=== PATIENT | male | born 1935 | race Caucasian/White ===

== ENCOUNTER 2017-10-20 10:35 | Inpatient (IN) | payer MEDICARE ==
[~2017-10-20] VITALS: Ht 157.5 cm; Wt 54.9 kg
[2017-10-20] MEDS ORDERED: SODIUM CHLORIDE 0.9% 1000ML 1,000 ML IV SCH (11:00)
[2017-10-20 11:11] LABS: BILIRUBIN,URINE NEGATIVE (NEGATIVE); CLARITY,URINE SL CLOUDY (CLEAR); COLOR,URINE AMBER (YELLOW); KETONES,URINE NEGATIVE (NEGATIVE); LEUKOCYTE ESTERASE ,URINE 1+ (NEGATIVE); NITRITE,URINE NEGATIVE (NEGATIVE); PROTEIN,URINE DIPSTICK TRACE (NEGATIVE); URINE UROBILINOGEN 0.2 mg/dL (0.2 - 1)
[2017-10-20] MEDS ORDERED: SODIUM CHLORIDE 0.9% 1000ML 1,000 ML ONE (11:11)
[2017-10-20 11:22] LABS: WBC,URINE (MAN) 21-50 /HPF (0-5)
[2017-10-20 11:23] LABS: BACTERIA,URINE FEW /HPF; EPITHELIAL CELLS,URINE RARE /LPF
[2017-10-20 11:25] LABS: AMORPHOUS SEDIMENT,URINE RARE (FEW)
[2017-10-20 11:29] LABS: BASOPHILS % 0.2 % (0.0-1.0); EOSINOPHILS % 0.1 % (0.0-6.0); HEMATOCRIT 38.2 % (38.2-49.6); HEMOGLOBIN 12.5 g/dL (14.0-18.0); LYMPHOCYTES # (AUTO) 0.7 (1.0-3.2); LYMPHOCYTES % 4.1 % (18.0-39.1); MEAN CORPUSCULAR HEMOGLOBIN 31.3 pg (28-32); MEAN CORPUSCULAR HGB CONC 32.7 g/dL (31-35); MEAN CORPUSCULAR VOLUME 95.7 fL (81-99); MONOCYTES # (AUTO) 1.4 (0.2-0.8); MONOCYTES % 8.1 % (4.4-11.3); NEUTROPHILS # (AUTO) 14.6 (2.1-6.9); NEUTROPHILS % 86.8 % (38.7-80.0); PLATELET COUNT 165 x10e3/uL (140-360); RED BLOOD COUNT 3.99 x10e6/uL (4.3-5.7)
[2017-10-20 11:49] LABS: ALBUMIN 3.7 g/dL (3.5-5.0); ALBUMIN/GLOBULIN RATIO 1.1 (0.8-2.0); CALCIUM 9.5 mg/dL (8.4-10.2); CREATININE, SERUM 1.34 mg/dL (0.72-1.25)
[2017-10-20] MEDS ORDERED: MEROPENEM 1GRAM 1 GM in SODIUM CHLORIDE 0.9% 100 ML 100 ML IV SCH (12:15)
[2017-10-20] MEDS: MEROPENEM 1 GM VIAL IV SCH (13:08)
[2017-10-20] MEDS: SODIUM CHLORIDE 0.9% 1000ML 1,000 ML IV SCH (13:08)
[2017-10-20 13:30] VITALS: BP 124/54
[2017-10-20 14:15] VITALS: BP 124/54
[2017-10-20 16:27] VITALS: BP 125/60
[2017-10-20 19:30] VITALS: BP 114/62
[2017-10-20 20:00] VITALS: BP 114/62
[2017-10-21] VITALS (7 sets, daily range): BP systolic 98–138; BP diastolic 56–63
[2017-10-21] MEDS: MEROPENEM 1 GM VIAL IV SCH ×2 (01:00→13:40)
[2017-10-21] MEDS ORDERED: HYDRALAZINE HCL 20 MG/ML VIAL IV PRN (07:45)
[2017-10-21] MEDS ORDERED: ACETAMINOPHEN 325 MG TAB PO PRN (07:45)
[2017-10-21] MEDS ORDERED: ONDANSETRON HCL INJ 2 MG/ML VIAL IV PRN (07:45)
[2017-10-21] MEDS ORDERED: ZEBETA10 MG PO (09:05)
[2017-10-21] MEDS ORDERED: [UNRECOGNIZED DRUG - OTHER] PO (09:05)
[2017-10-21] MEDS ORDERED: SIMVASTATIN20 MG PO (09:05)
[2017-10-21] MEDS: SODIUM CHLORIDE 0.9% 1000ML 1,000 ML IV SCH (13:40)
[2017-10-21] MEDS ORDERED: SIMVASTATIN 20 MG TAB PO SCH (21:00)
[2017-10-22] VITALS: BP 123/65
[2017-10-22] MEDS: MEROPENEM 1 GM VIAL IV SCH (01:00)
[2017-10-22 03:13] LABS: BASOPHILS % 0.2 % (0.0-1.0); EOSINOPHILS # (AUTO) 0.1 (0.0-0.4); EOSINOPHILS % 0.6 % (0.0-6.0); HEMATOCRIT 32.5 % (38.2-49.6); HEMOGLOBIN 10.6 g/dL (14.0-18.0); LYMPHOCYTES # (AUTO) 1.2 (1.0-3.2); LYMPHOCYTES % 8.8 % (18.0-39.1); MEAN CORPUSCULAR HEMOGLOBIN 30.8 pg (28-32); MEAN CORPUSCULAR HGB CONC 32.6 g/dL (31-35); MEAN CORPUSCULAR VOLUME 94.5 fL (81-99); MONOCYTES # (AUTO) 0.9 (0.2-0.8); MONOCYTES % 6.6 % (4.4-11.3); NEUTROPHILS # (AUTO) 10.9 (2.1-6.9); NEUTROPHILS % 83.3 % (38.7-80.0); PLATELET COUNT 152 x10e3/uL (140-360); RED BLOOD COUNT 3.44 x10e6/uL (4.3-5.7); RED CELL DISTRIBUTION WIDTH 11.9 % (11.7-14.4)
[2017-10-22 03:30] LABS: % IRON SATURATION 9 % (15-50); ANION GAP 10.7 mmol/L (8-16); BLOOD UREA NITROGEN 11 mg/dL (7-26); BUN/CREATININE RATIO 15 (6-25); CALCIUM 8.3 mg/dL (8.4-10.2); CARBON DIOXIDE 25 mmol/L (22-29); CHLORIDE 105 mmol/L (98-107); CHOL/HDL RATIO 3.1 (3.9-4.7); CHOLESTEROL 99 MD/DL (0-199); CREATININE, SERUM 0.75 mg/dL (0.72-1.25); EST GLOMERULAR FILTRATION RATE > 60 ML/MIN (60-); GLUCOSE 82 mg/dL (74-118); HDL CHOLESTEROL 32 MG/DL (40-60); IRON 18 ug/dL (65-175); LDL CHOLESTEROL 53 MG/DL (60-130); MAGNESIUM 1.5 MG/DL (1.3-2.1); POTASSIUM 3.7 mmol/L (3.5-5.1); SODIUM 137 mmol/L (136-145); TOTAL IRON BINDING CAPACITY 202 ug/dL (261-478); TRANSFERRIN 144 mg/dL (174-364); TRIGLYCERIDES 70 MG/DL (0-149)
[2017-10-22 03:52] LABS: FERRITIN 201.99 ng/mL (21.81-274.66); FREE T4 (FREE THYROXINE) 0.98 ng/dL (0.9-1.8); THYROID STIMULATING HORMONE 0.558 uIU/mL (0.350-4.940)
[2017-10-22 04:00] VITALS: BP 122/59
[2017-10-22 04:26] VITALS: BP 123/65
[2017-10-22 05:07] LABS: FOLATE 5.9 ng/mL (7.0-15.4)
[2017-10-22 08:00] VITALS: BP 137/70
[2017-10-22] MEDS ORDERED: [UNRECOGNIZED DRUG - OTHER] PO SCH (09:00)
[2017-10-22] MEDS ORDERED: BENAZEPRIL HCL 10 MG TAB PO SCH (09:00)
[2017-10-22] MEDS ORDERED: AMLODIPINE BESYLATE 10 MG TAB PO SCH (09:00)
[2017-10-22] MEDS ORDERED: BISOPROLOL FUMARATE 10 MG TAB PO SCH (09:00)
[2017-10-22] MEDS ORDERED: FOLIC ACID1 MG PO (10:02)
[2017-10-22] MEDS ORDERED: OS-CAL 500+D T1 EACH PO (10:02)
[2017-10-22] MEDS ORDERED: BACTRIM DS TAB1 EACH PO (10:02)
[2017-10-22] MEDS ORDERED: OYST-CAL-D 500MG TABLET PO SCH (17:00)
--- NOTE | 2017-10-22 18:05 | Discharge Summary ---
ADMISSION DIAGNOSES 1. Urinary tract infection, failed outpatient. 2. Acute kidney injury versus chronic kidney disease. 3. Hypertension. 4. Hyperlipidemia. 5. Anemia. DISCHARGE DIAGNOSES 1. Urinary tract infection, failed outpatient. 2. Acute kidney injury versus chronic kidney disease. 3. Hypertension. 4. Hyperlipidemia. 5. Anemia. 6. Hypocalcemia. 7. Folic acid deficiency. HISTORY: Patient has a history of hypertension and hyperlipidemia. No surgical history. HOSPITAL COURSE: An 82-year-old male status post cysto-retrograde with prostate biopsy on October 10, 2017. He says the dysuria began after the procedure. He was given antibiotics that started with an "L" and pain medicine. The pain went away for a few days but returned with fever. The patient's dysuria resolved once IV antibiotics were started in the hospital, which was Merrem. Urine culture sent, which showed ESBL. Patient's creatinine went from 1.34 on admission to 0.75 on discharge. GFR went from 51 to over 60. Patient was started on hydralazine IV p.r.n. as well as his home medications for high blood pressure and high cholesterol. Per Urology, patient sent home with Bactrim for 14 days as well as folic acid and calcium carbonate. He will follow up with primary care in 1 to 2 weeks as well as Dr. Wilson as stated. Patient understands discharge instructions and is ready to go home. Dictated by: Matilda Tapia NP MELONIE DOE MD Job#: [id number] EV
[2017-10-23] MEDS ORDERED: FOLIC ACID 1 MG TAB PO SCH (09:00)
== END 2017-10-22 10:31 | disposition home or self-care (01) | DRG 690 ==
LOC: ER 10:35 → ERHOLD 12:24 → MED/SURG2 13:15
PROVIDERS: ADMIT Internal Medicine; ATTEND Internal Medicine
DX: N39.0 Urinary tract infection, site not specified (principal); N17.9 Acute kidney failure, unspecified; E87.1 Hypo-osmolality and hyponatremia; E78.5 Hyperlipidemia, unspecified; E83.51 Hypocalcemia; E53.8 Deficiency of other specified B group vitamins; D64.9 Anemia, unspecified; B96.20 Unspecified Escherichia coli [E. coli] as the cause of diseases classified elsewhere; Z16.12 Extended spectrum beta lactamase (ESBL) resistance; I12.9 Hypertensive chronic kidney disease with stage 1 through stage 4 chronic kidney disease, or unspecified chronic kidney disease; N18.9 Chronic kidney disease, unspecified
CPT/HCPCS: 36415; 80048; 80053; 80061; 81001; 82607; 82728; 82746; 83036; 83540; 83735; 84439; 84443; 84466; 85025; 87086; 87186; 96367; 99284; J2185; J7030

== ENCOUNTER 2017-11-07 10:54 | Emergency (ER) | payer MEDICARE ==
[~2017-11-07] VITALS: Ht 157.5 cm; Wt 54.9 kg
[~2017-11-07 10:54] MED LIST: BACTRIM DS TAB1 EACH PO; FOLIC ACID1 MG PO; OS-CAL 500+D T1 EACH PO; SIMVASTATIN20 MG PO; ZEBETA10 MG PO; [UNRECOGNIZED DRUG - OTHER] PO
[2017-11-07] MEDS ORDERED: SODIUM CHLORIDE 0.9% 1000ML 1,000 ML IV SCH (11:33)
[2017-11-07 11:57] LABS: BASOPHILS % 0.6 % (0.0-1.0); EOSINOPHILS % 0.6 % (0.0-6.0); HEMATOCRIT 35.8 % (38.2-49.6); LYMPHOCYTES # (AUTO) 0.6 (1.0-3.2); LYMPHOCYTES % 12.9 % (18.0-39.1); MEAN CORPUSCULAR HEMOGLOBIN 31.7 pg (28-32); MEAN CORPUSCULAR HGB CONC 33.5 g/dL (31-35); MEAN CORPUSCULAR VOLUME 94.5 fL (81-99); MONOCYTES # (AUTO) 0.7 (0.2-0.8); MONOCYTES % 13.3 % (4.4-11.3); NEUTROPHILS # (AUTO) 3.6 (2.1-6.9); NEUTROPHILS % 71.8 % (38.7-80.0); PLATELET COUNT 163 x10e3/uL (140-360); RED BLOOD COUNT 3.79 x10e6/uL (4.3-5.7); RED CELL DISTRIBUTION WIDTH 12.3 % (11.7-14.4)
[2017-11-07 12:12] LABS: CREATINE KINASE 94 IU/L (30-200)
[2017-11-07 12:31] LABS: ALBUMIN 3.3 g/dL (3.5-5.0); ALBUMIN/GLOBULIN RATIO 0.9 (0.8-2.0); ANION GAP 13.9 mmol/L (8-16); CALCIUM 8.8 mg/dL (8.4-10.2); CREATININE, SERUM 1.77 mg/dL (0.72-1.25); POTASSIUM 3.9 mmol/L (3.5-5.1)
[2017-11-07 12:38] LABS: BLAST CELLS % MANUAL 1; LYMPHOCYTES % (MANUAL) 11 % (19-48); MONOCYTES % (MANUAL) 10 % (3.4-9.0); NEUTROPHILS % (MANUAL) 71 % (40-74); PLATELET ESTIMATE ADEQUATE; PLATELET MORPHOLOGY COMMENT NORMAL; RBC MORPHOLOGY COMMENT NORMAL
[2017-11-07] MEDS ORDERED: SODIUM CHLORIDE 0.9% 1000ML 1,000 ML IV STA (13:07)
[2017-11-07 14:31] LABS: BILIRUBIN,URINE NEGATIVE (NEGATIVE); CLARITY,URINE CLEAR (CLEAR); COLOR,URINE YELLOW (YELLOW); KETONES,URINE NEGATIVE (NEGATIVE); LEUKOCYTE ESTERASE ,URINE NEGATIVE (NEGATIVE); NITRITE,URINE NEGATIVE (NEGATIVE); PROTEIN,URINE DIPSTICK NEGATIVE (NEGATIVE); URINE UROBILINOGEN 0.2 mg/dL (0.2 - 1)
[2017-11-07 14:44] LABS: BACTERIA,URINE RARE /HPF; EPITHELIAL CELLS,URINE FEW /LPF; RBC,URINE 0-5 /HPF (0-5); WBC,URINE (MAN) 0-5 /HPF (0-5)
[2017-11-07 15:50] VITALS: BP 136/74
[2017-11-11] MEDS ORDERED: SODIUM CHLORIDE1 GM PO (14:19)
== END 2017-11-07 15:51 | disposition home or self-care (01) ==
LOC: ER 10:54
DX: E87.1 Hypo-osmolality and hyponatremia (principal); K52.9 Noninfective gastroenteritis and colitis, unspecified; I10 Essential (primary) hypertension; E78.00 Pure hypercholesterolemia, unspecified
CPT/HCPCS: 36415; 80053; 81001; 82270; 82550; 82553; 84484; 85025; 86850; 86900; 93005; 99284; J7030

== ENCOUNTER 2017-11-17 10:35 | Inpatient (IN) | payer MEDICARE, OTHER ==
--- NOTE | 2017-11-11 16:04 | Diagnostic Imaging Report ---
PROCEDURE: Frontal and lateral views of the chest. COMPARISON: None. INDICATIONS: PRE-OP FINDINGS: Lines/tubes: None. Lungs: The lungs are mildly hyperinflated, with increased retrosternal air. Prominence of the interstitial markings with reticular nodular opacities in peripheral aspect bilateral mid and lower lungs on the frontal view. 4 mm nodular density in the left upper lobe. There is no evidence of consolidation or pulmonary edema. Pleura: There is no pleural effusion or pneumothorax. Heart and mediastinum: Cardiac silhouette is unremarkable. Pulmonary vasculature is normal. Bones: No acute bony abnormality. Degenerative changes in the thoracic spine. IMPRESSION: 1. mild hyperinflated lungs with increased retrosternal air, suggesting COPD. 2. Prominence of interstitial markings and reticular nodular opacities in the peripheral aspect of bilateral mid and lower lungs. These may reflect fibrotic changes. CT chest is recommended for further evaluation. No consolidation or pulmonary edema. 3. 4 mm nonspecific pulmonary nodule in the left upper lobe. Bassem Wright M.D. Dictated by: Bassem Wright M.D. on 11/11/2017 at 16:08 Electronically approved by: Bassem Wright M.D. on 11/11/2017 at 16:08
[~2017-11-17] VITALS: Ht 157.5 cm; Wt 54.9 kg
[~2017-11-17 10:35] MED LIST changes: +SODIUM CHLORIDE1 GM PO
[2017-11-17] MEDS ORDERED: CEFTRIAXONE SOD 1 GM VIAL ONE (10:59)
[2017-11-17] MEDS: MEROPENEM 1 GM VIAL IV NR (11:54)
[2017-11-17 11:59] LABS: ANION GAP 14.2 mmol/L (8-16); BLOOD UREA NITROGEN 23 mg/dL (7-26); BUN/CREATININE RATIO 23 (6-25); CALCIUM 9.1 mg/dL (8.4-10.2); CARBON DIOXIDE 27 mmol/L (22-29); CHLORIDE 106 mmol/L (98-107); EST GLOMERULAR FILTRATION RATE > 60 ML/MIN (60-); GLUCOSE 83 mg/dL (74-118); POTASSIUM 4.2 mmol/L (3.5-5.1); SODIUM 143 mmol/L (136-145)
[2017-11-17] MEDS ORDERED: BELLADONNA/OPIUM 30 MG SUPP RC ONE (12:34)
[2017-11-17] MEDS ORDERED: IOPAMIDOL 610MG/1ML 300 MG/ML VIAL IV ONE (12:34)
[2017-11-17] MEDS ORDERED: FENTANYL CITRATE/PF 100MCG/2 ML INJ ONE ×2 (15:06→17:54)
[2017-11-17] MEDS ORDERED: MORPHINE SULFATE 2 MG/ML SYR ONE ×3 (15:23→17:04)
[2017-11-17] MEDS ORDERED: MEPERIDINE HCL INJ 50 MG/ML INJ ONE (15:32)
[2017-11-17] MEDS ORDERED: MORPHINE SULFATE INJ 10 MG/ML ONE (17:23)
[2017-11-17] MEDS ORDERED: LIDOCAINE HCL 2% LOCAL INJ 5 ML SDV VIAL INJ ONE (17:25)
[2017-11-17] MEDS ORDERED: PROPOFOL IV EMULSION 10 MG/ML 20 ML VIAL ONE (17:25)
[2017-11-17] MEDS ORDERED: DEXAMETHASONE SOD PHOS INJ 4 MG/ML VIAL ONE (17:25)
[2017-11-17] MEDS ORDERED: ONDANSETRON HCL INJ 2 MG/ML VIAL ONE (17:25)
[2017-11-17] MEDS ORDERED: SEVOFLURANE INHAL SOLN 250 ML PEN BTL ONE (17:25)
[2017-11-17] MEDS ORDERED: D5.45%NS/KCL 20MEQ 1,000 ML IV SCH (17:41)
[2017-11-17] MEDS ORDERED: ACETAMINOPHEN/CODEINE 300MG - 30MG TAB PO PRN (17:45)
[2017-11-17] MEDS ORDERED: BELLADONNA/OPIUM 60 MG SUPP PR PRN (17:45)
[2017-11-17] MEDS ORDERED: BELLADONNA/OPIUM 30 MG SUPP RC PRN (18:00)
[2017-11-17 20:00] VITALS: BP 137/87
[2017-11-17] MEDS: LEVOFLOXACIN 250 MG TAB PO SCH (20:00)
[2017-11-17] MEDS: PHENAZOPYRIDINE HCL 100 MG TAB PO SCH (20:00)
[2017-11-17 20:30] VITALS: BP 137/87
[2017-11-17 23:45] VITALS: BP 137/87
[2017-11-18] VITALS (8 sets, daily range): BP systolic 129–169; BP diastolic 60–74
[2017-11-18 05:28] LABS: BASOPHILS % 0.2 % (0.0-1.0); HEMATOCRIT 35.1 % (38.2-49.6); HEMOGLOBIN 11.2 g/dL (14.0-18.0); LYMPHOCYTES # (AUTO) 0.6 (1.0-3.2); MEAN CORPUSCULAR HEMOGLOBIN 31.8 pg (28-32); MEAN CORPUSCULAR HGB CONC 31.9 g/dL (31-35); MEAN CORPUSCULAR VOLUME 99.7 fL (81-99); MONOCYTES # (AUTO) 0.5 (0.2-0.8); MONOCYTES % 6.4 % (4.4-11.3); NEUTROPHILS # (AUTO) 7.3 (2.1-6.9); PLATELET COUNT 72 x10e3/uL (140-360); RED BLOOD COUNT 3.52 x10e6/uL (4.3-5.7); RED CELL DISTRIBUTION WIDTH 13.4 % (11.7-14.4)
[2017-11-18 05:46] LABS: ANION GAP 13.6 mmol/L (8-16); BLOOD UREA NITROGEN 25 mg/dL (7-26); BUN/CREATININE RATIO 27 (6-25); CALCIUM 8.6 mg/dL (8.4-10.2); CARBON DIOXIDE 25 mmol/L (22-29); CHLORIDE 104 mmol/L (98-107); CHOLESTEROL 180 MD/DL (0-199); CREATININE, SERUM 0.93 mg/dL (0.72-1.25); EST GLOMERULAR FILTRATION RATE > 60 ML/MIN (60-); GLUCOSE 150 mg/dL (74-118); HDL CHOLESTEROL 45 MG/DL (40-60); LDL CHOLESTEROL 117 MG/DL (60-130); MAGNESIUM 1.8 MG/DL (1.3-2.1); SODIUM 137 mmol/L (136-145); TRIGLYCERIDES 89 MG/DL (0-149)
[2017-11-18 05:48] LABS: POTASSIUM 5.6 mmol/L (3.5-5.1)
[2017-11-18 05:53] LABS: B-TYPE NATRIURETIC PEPTIDE2 214.1 pg/mL (0-100)
[2017-11-18 06:06] LABS: FREE T4 (FREE THYROXINE) 0.84 ng/dL (0.9-1.8); THYROID STIMULATING HORMONE 0.529 uIU/mL (0.350-4.940)
[2017-11-18] MEDS ORDERED: ONDANSETRON HCL INJ 2 MG/ML VIAL IV PRN (08:00)
[2017-11-18] MEDS ORDERED: HYDRALAZINE HCL 20 MG/ML VIAL IV PRN (08:00)
[2017-11-18] MEDS ORDERED: ACETAMINOPHEN 325 MG TAB PO PRN (08:00)
[2017-11-18] MEDS: FOLIC ACID 1 MG TAB PO SCH (09:12)
[2017-11-18] MEDS: SODIUM CHLORIDE 1 GM TAB PO SCH ×2 (09:12→17:07)
[2017-11-18] MEDS: OYST-CAL-D 500MG TABLET PO SCH (09:12)
[2017-11-18] MEDS: FAMOTIDINE 20 MG TAB PO SCH ×2 (09:12→17:07)
[2017-11-18] MEDS: PHENAZOPYRIDINE HCL 100 MG TAB PO SCH ×3 (09:12→17:07)
[2017-11-18] MEDS: BISOPROLOL FUMARATE 10 MG TAB PO SCH (09:12)
[2017-11-18] MEDS ORDERED: FAMOTIDINE20 MG PO (13:06)
[2017-11-18] MEDS ORDERED: LOSARTAN POTASS50 MG PO (13:06)
[2017-11-18] MEDS ORDERED: ASPIRIN81 MG PO (13:06)
[2017-11-18] MEDS ORDERED: CLONIDINE HCL 0.1 MG TAB PO PRN (15:30)
[2017-11-18] MEDS: LEVOFLOXACIN 250 MG TAB PO SCH (17:07)
[2017-11-18] MEDS: SIMVASTATIN 20 MG TAB PO SCH (21:10)
[2017-11-19] VITALS (9 sets, daily range): BP systolic 134–164; BP diastolic 61–74
[2017-11-19 05:10] LABS: BASOPHILS % 0.4 % (0.0-1.0); EOSINOPHILS # (AUTO) 0.2 (0.0-0.4); EOSINOPHILS % 2.6 % (0.0-6.0); HEMATOCRIT 31.1 % (38.2-49.6); HEMOGLOBIN 10.2 g/dL (14.0-18.0); LYMPHOCYTES # (AUTO) 1.4 (1.0-3.2); LYMPHOCYTES % 19.6 % (18.0-39.1); MEAN CORPUSCULAR HEMOGLOBIN 31.9 pg (28-32); MEAN CORPUSCULAR HGB CONC 32.8 g/dL (31-35); MEAN CORPUSCULAR VOLUME 97.2 fL (81-99); MONOCYTES # (AUTO) 0.6 (0.2-0.8); MONOCYTES % 8.8 % (4.4-11.3); NEUTROPHILS # (AUTO) 4.9 (2.1-6.9); NEUTROPHILS % 68.2 % (38.7-80.0); PLATELET COUNT 185 x10e3/uL (140-360); RED CELL DISTRIBUTION WIDTH 13.4 % (11.7-14.4)
[2017-11-19 05:39] LABS: BLOOD UREA NITROGEN 22 mg/dL (7-26); BUN/CREATININE RATIO 27 (6-25); CALCIUM 8.4 mg/dL (8.4-10.2); CARBON DIOXIDE 30 mmol/L (22-29); CHLORIDE 103 mmol/L (98-107); CREATININE, SERUM 0.82 mg/dL (0.72-1.25); EST GLOMERULAR FILTRATION RATE > 60 ML/MIN (60-); GLUCOSE 81 mg/dL (74-118); MAGNESIUM 1.7 MG/DL (1.3-2.1); SODIUM 138 mmol/L (136-145)
[2017-11-19] MEDS: PHENAZOPYRIDINE HCL 100 MG TAB PO SCH ×3 (08:24→16:50)
[2017-11-19] MEDS: OYST-CAL-D 500MG TABLET PO SCH (08:24)
[2017-11-19] MEDS: BISOPROLOL FUMARATE 10 MG TAB PO SCH (08:24)
[2017-11-19] MEDS: SODIUM CHLORIDE 1 GM TAB PO SCH ×2 (08:40→16:50)
[2017-11-19] MEDS: FOLIC ACID 1 MG TAB PO SCH (08:40)
[2017-11-19] MEDS: FAMOTIDINE 20 MG TAB PO SCH ×2 (08:40→16:50)
[2017-11-19 09:26] LABS: CLARITY,URINE TURBID (CLEAR); COLOR,URINE RED (YELLOW); LEUKOCYTE ESTERASE ,URINE 1+ (NEGATIVE); NITRITE,URINE POSITIVE (NEGATIVE)
[2017-11-19 09:27] LABS: BILIRUBIN,URINE NEGATIVE (NEGATIVE); KETONES,URINE TRACE (NEGATIVE); PROTEIN,URINE DIPSTICK 3+ (NEGATIVE); URINE UROBILINOGEN 1 mg/dL (0.2 - 1)
[2017-11-19 09:38] LABS: RBC,URINE >50 /HPF (0-5)
[2017-11-19 09:39] LABS: BACTERIA,URINE RARE /HPF; EPITHELIAL CELLS,URINE RARE /LPF; WBC,URINE (MAN) 0-5 /HPF (0-5)
[2017-11-19] MEDS: LEVOFLOXACIN 250 MG TAB PO SCH (16:50)
[2017-11-19] MEDS: SIMVASTATIN 20 MG TAB PO SCH (21:21)
[2017-11-20] VITALS (8 sets, daily range): BP systolic 140–163; BP diastolic 65–76
[2017-11-20 04:55] LABS: BASOPHILS # (AUTO) 0.1 (0.0-0.1); BASOPHILS % 0.8 % (0.0-1.0); EOSINOPHILS # (AUTO) 0.2 (0.0-0.4); EOSINOPHILS % 3.4 % (0.0-6.0); HEMATOCRIT 31.3 % (38.2-49.6); HEMOGLOBIN 9.9 g/dL (14.0-18.0); LYMPHOCYTES # (AUTO) 1.2 (1.0-3.2); LYMPHOCYTES % 18.9 % (18.0-39.1); MEAN CORPUSCULAR HEMOGLOBIN 31.5 pg (28-32); MEAN CORPUSCULAR HGB CONC 31.6 g/dL (31-35); MEAN CORPUSCULAR VOLUME 99.7 fL (81-99); MONOCYTES # (AUTO) 0.6 (0.2-0.8); NEUTROPHILS # (AUTO) 4.2 (2.1-6.9); NEUTROPHILS % 67.6 % (38.7-80.0); PLATELET COUNT 186 x10e3/uL (140-360); RED BLOOD COUNT 3.14 x10e6/uL (4.3-5.7); RED CELL DISTRIBUTION WIDTH 13.4 % (11.7-14.4)
[2017-11-20 05:24] LABS: ANION GAP 11.8 mmol/L (8-16); BLOOD UREA NITROGEN 19 mg/dL (7-26); BUN/CREATININE RATIO 20 (6-25); CALCIUM 8.4 mg/dL (8.4-10.2); CARBON DIOXIDE 30 mmol/L (22-29); CHLORIDE 104 mmol/L (98-107); CREATININE, SERUM 0.94 mg/dL (0.72-1.25); EST GLOMERULAR FILTRATION RATE > 60 ML/MIN (60-); GLUCOSE 85 mg/dL (74-118); POTASSIUM 3.8 mmol/L (3.5-5.1); SODIUM 142 mmol/L (136-145)
[2017-11-20] MEDS: BISOPROLOL FUMARATE 10 MG TAB PO SCH (09:10)
[2017-11-20] MEDS: SODIUM CHLORIDE 1 GM TAB PO SCH ×2 (09:10→17:15)
[2017-11-20] MEDS: PHENAZOPYRIDINE HCL 100 MG TAB PO SCH ×3 (09:10→17:15)
[2017-11-20] MEDS: FAMOTIDINE 20 MG TAB PO SCH ×2 (09:11→17:15)
[2017-11-20] MEDS: OYST-CAL-D 500MG TABLET PO SCH (09:11)
[2017-11-20] MEDS: FOLIC ACID 1 MG TAB PO SCH (09:11)
[2017-11-20] MEDS: LEVOFLOXACIN 250 MG TAB PO SCH (17:15)
[2017-11-20] MEDS: SIMVASTATIN 20 MG TAB PO SCH (20:05)
[2017-11-21] VITALS: BP 139/67
[2017-11-21 04:00] VITALS: BP 156/70
[2017-11-21 04:24] LABS: BASOPHILS # (AUTO) 0.1 (0.0-0.1); BASOPHILS % 0.9 % (0.0-1.0); EOSINOPHILS # (AUTO) 0.2 (0.0-0.4); EOSINOPHILS % 3.2 % (0.0-6.0); HEMATOCRIT 30.4 % (38.2-49.6); HEMOGLOBIN 9.8 g/dL (14.0-18.0); LYMPHOCYTES # (AUTO) 1.2 (1.0-3.2); LYMPHOCYTES % 21.4 % (18.0-39.1); MEAN CORPUSCULAR HEMOGLOBIN 31.5 pg (28-32); MEAN CORPUSCULAR HGB CONC 32.2 g/dL (31-35); MEAN CORPUSCULAR VOLUME 97.7 fL (81-99); MONOCYTES # (AUTO) 0.5 (0.2-0.8); MONOCYTES % 8.9 % (4.4-11.3); NEUTROPHILS # (AUTO) 3.7 (2.1-6.9); NEUTROPHILS % 65.4 % (38.7-80.0); PLATELET COUNT 169 x10e3/uL (140-360); RED BLOOD COUNT 3.11 x10e6/uL (4.3-5.7); RED CELL DISTRIBUTION WIDTH 13.2 % (11.7-14.4)
[2017-11-21 04:49] LABS: ANION GAP 10.9 mmol/L (8-16); BLOOD UREA NITROGEN 17 mg/dL (7-26); BUN/CREATININE RATIO 20 (6-25); CALCIUM 8.4 mg/dL (8.4-10.2); CARBON DIOXIDE 28 mmol/L (22-29); CHLORIDE 105 mmol/L (98-107); CREATININE, SERUM 0.83 mg/dL (0.72-1.25); EST GLOMERULAR FILTRATION RATE > 60 ML/MIN (60-); GLUCOSE 81 mg/dL (74-118); POTASSIUM 3.9 mmol/L (3.5-5.1); SODIUM 140 mmol/L (136-145)
[2017-11-21 08:46] VITALS: BP 136/64
[2017-11-21] MEDS: SODIUM CHLORIDE 1 GM TAB PO SCH ×2 (09:20→16:13)
[2017-11-21] MEDS: FOLIC ACID 1 MG TAB PO SCH (09:20)
[2017-11-21] MEDS: OYST-CAL-D 500MG TABLET PO SCH (09:20)
[2017-11-21] MEDS: PHENAZOPYRIDINE HCL 100 MG TAB PO SCH ×3 (09:20→17:00)
[2017-11-21] MEDS: FAMOTIDINE 20 MG TAB PO SCH ×2 (09:20→16:13)
[2017-11-21] MEDS: BISOPROLOL FUMARATE 10 MG TAB PO SCH (09:30)
[2017-11-21 12:00] VITALS: BP 151/67
[2017-11-21 16:42] VITALS: BP 127/59
[2017-11-21] MEDS: SODIUM CHLORIDE 0.9% 1000ML 1,000 ML IV SCH (16:45)
[2017-11-21] MEDS: LEVOFLOXACIN 250 MG TAB PO SCH (17:00)
[2017-11-21 20:00] VITALS: BP 157/69
[2017-11-21] MEDS: SIMVASTATIN 20 MG TAB PO SCH (20:52)
[2017-11-22] VITALS: BP 138/63
[2017-11-22] MEDS: SODIUM CHLORIDE 0.9% 1000ML 1,000 ML IV SCH (00:08)
[2017-11-22 04:00] VITALS: BP 149/67
[2017-11-22 09:30] VITALS: BP 153/70
[2017-11-22] MEDS: FAMOTIDINE 20 MG TAB PO SCH ×2 (09:30→17:25)
[2017-11-22] MEDS: BISOPROLOL FUMARATE 10 MG TAB PO SCH (09:30)
[2017-11-22] MEDS: OYST-CAL-D 500MG TABLET PO SCH (09:30)
[2017-11-22] MEDS: SODIUM CHLORIDE 1 GM TAB PO SCH ×2 (09:30→17:25)
[2017-11-22] MEDS: PHENAZOPYRIDINE HCL 100 MG TAB PO SCH ×3 (09:30→17:25)
[2017-11-22] MEDS: FOLIC ACID 1 MG TAB PO SCH (09:30)
[2017-11-22 09:34] VITALS: BP 153/70
[2017-11-22 12:26] VITALS: BP 157/67
[2017-11-22] MEDS ORDERED: LEVAQUIN250 MG PO (16:38)
[2017-11-22] MEDS ORDERED: ACETAMINOPHEN325 M1 PO (16:38)
[2017-11-22] MEDS ORDERED: TYLENOL # 31 EA PO (16:38)
[2017-11-22] MEDS ORDERED: PYRIDIUM100 MG PO (16:38)
[2017-11-22 16:55] VITALS: BP 170/79
--- NOTE | 2017-11-22 17:24 | Discharge Summary ---
Attending physician Dr. Kg Wilson. Dr. Melonie Lewis is consulting physician. This discharge summary is dictated for him. PERTINENT HISTORY AND PHYSICAL FINDINGS: is an 82-year-old male that had a TURP on November 17, 2017, by Dr. Kg Wilson. Three hours after the TURP, the patient's Telles catheter clotted and the patient was admitted for continuous bladder irrigation. Past medical history includes UTI, hypertension, hyperlipidemia and anemia. No past surgical history except for the TURP. Negative for tobacco, alcohol or illicit drug use. Noncontributory on family history. NO KNOWN ALLERGIES. ADMITTING DIAGNOSES: Include 1. Telles catheter clotted status post transurethral resection of the prostate. 2. Hyperkalemia. 3. Hypertension. 4. Hyperlipidemia. DISCHARGE DIAGNOSES: Include 1. Status post transurethral resection of the prostate, clotted Telles catheter. 2. Hyperkalemia. 3. Hypertension. 4. Hyperlipidemia. 5. Anemia. 6. Asymptomatic bradycardia. PERTINENT DIAGNOSTICS AND LABS: Urinalysis collected on November 19 showed turbid urine with 3+ protein, trace amount of ketones, 4+ blood, positive for nitrites, 1+ leukocyte esterases, greater than 50 RBCs. WBCs and bacteria were within normal limits. Yesterday BUN, creatinine and GFR 17, 0.83 and greater than 60. B-type natriuretic peptide on November 18 was 214.1. Yesterday, WBCs 5.61, hemoglobin 9.8, hematocrit 30.4 and platelets 169. On November 18, hemoglobin 11.2, hematocrit 35.1, WBCs 8.43. Patient received continuous bladder irrigation per urology orders. Then on November 21, serial urines were ordered per Urology. Today Urology indicated patient okay to discharge home. He is to follow up with Dr. Wilson within 1 month. He states that currently his pain level is a 9 on a scale of 0 to 10, still having some dysuria and hematuria. Physical exam is unchanged from yesterday. Disposition is home with his without home health. No DME required. Dr. Wilson has left a prescription for Levaquin 250 mg p.o. daily x7 days and Tylenol No. 3 one tablet p.o. q.4 h. p.r.n. for pain, quantity 30. I will also send home with Pyridium 100 mg p.o. p.c. Follow up with PCP in 1 to 2 weeks. Dictated by: Ron Malone, FABIO MELONIE LEWIS MD Job#: [id number] EV
[2017-11-22] MEDS: LEVOFLOXACIN 250 MG TAB PO SCH (17:25)
--- NOTE | 2018-01-14 23:58 | Operative Report ---
DATE OF PROCEDURE: November 17, 2017 PREOPERATIVE DIAGNOSIS: Obstructive BPH. POSTOPERATIVE DIAGNOSIS: Obstructive BPH. OPERATION PERFORMED: Staged transurethral resection of the prostate utilizing the plasma button electrode. ANESTHESIA: General. COMPLICATION: None. CLINICAL SUMMARY: Neri Sanders is an 82-year-old man with obstructive BPH. The patient has failed medical therapy. He has persistent obstruction. He is brought for transurethral resection of the prostate. He is aware of the risks of bleeding, infection, injury to adjacent structures, need for additional procedures and elected to proceed. OPERATIVE PROCEDURE IN DETAIL: Informed consent was verified. Neri Sanders was properly identified, taken to the operating room, placed on the cystoscopy table in supine position. Anesthesia was uneventfully begun. The patient was then carefully gently repositioned in the dorsal lithotomy position with all pressure points well padded. His genitalia were prepared and draped in usual sterile fashion. The resectoscope sheath with a visual obturator in place was atraumatically inserted to the patient's urethra. It was guided down the unremarkable urethra past a normal sphincteric region to the prostate bed which was significant for kissing lateral lobes and visual obstruction. Panendoscopy of the urinary bladder revealed no suspicious mucosal lesions, no tumors, no stones and no true diverticula. Grade 2 trabeculations were noted. Normally positioned and configured ureteral orifices were identified. There were no suspicious lesions. The plasma button electrode was then utilized to vaporize the prostate from the bladder neck too, but never past the verumontanum and down to the surgical capsule. Pinpoint electrocautery was utilized to achieve hemostasis. The resectoscope was then withdrawn. A Telles catheter was placed. He was placed on continuous irrigation and the patient was then uneventfully reversed from anesthesia and taken to recovery room in stable condition. There were no complications during the procedure. The patient tolerated the procedure well. His condition will be monitored in the recovery room and we will decide then based on his performance whether he will be discharged or kept in-house. The long-term plan for this patient now that he has been placed on hormone therapy for what we believe to be is clinically localized prostate cancer is to wait 6 months, verify that he is completely healed from this transurethral resection of the prostate and then proceed with radiotherapy. Job#: [id number] cc:TOMY GARCIA M.D.
== END 2017-11-22 17:23 | disposition home or self-care (01) | DRG 666 ==
LOC: OR 10:35 → MED/SURG 17:44 → UNDOADMIN 19:24
PROVIDERS: ADMIT Internal Medicine; ATTEND Internal Medicine
PROC: 0VB08ZZ Excision of Prostate, Via Natural or Artificial Opening Endoscopic (ICD-10-PCS; principal; 2017-11-17 13:00)
DX: N99.89 Other postprocedural complications and disorders of genitourinary system (principal); I12.0 Hypertensive chronic kidney disease with stage 5 chronic kidney disease or end stage renal disease; N18.5 Chronic kidney disease, stage 5; T83.098A Other mechanical complication of other urinary catheter, initial encounter; E78.5 Hyperlipidemia, unspecified; D64.9 Anemia, unspecified; E87.5 Hyperkalemia; C61 Malignant neoplasm of prostate; R31.9 Hematuria, unspecified; R00.1 Bradycardia, unspecified; Z87.440 Personal history of urinary (tract) infections
CPT/HCPCS: 36415; 71046; 80048; 80061; 81001; 83036; 83735; 83880; 84439; 84443; 85025; 87086; J0696; J1100; J2001; J2175; J2270; J2405; J7030